=== PATIENT | female | born 1945 | race Caucasian/White ===

== ENCOUNTER 2018-07-13 07:56 | Emergency (ER) | payer MEDICARE ==
[2018-07-13 08:12] VITALS: BP 151/64
--- NOTE | 2018-07-13 08:20 | UC ---
UC General HPI - HPI Summary HPI Summary: 73 year old female presents with onset of sore throat 2 days ago. States sore throat has improved but yesterday developed nausea with 2 episodes of vomiting. Last episode around 19:00 last night. Continues to complain of nausea. Associated with subjective fever, sweating, mild nasal congestion, and cough. Denies ear pain, dysphagia, chest pain, palpatations, SOB, abdominal pain, or diarrhea. - History of Current Complaint Chief Complaint: UCGeneralIllness Stated Complaint: ACHY,SORE THROAT,VOMITING,HEADACHE Time Seen by Provider: 07/13/18 08:09 Hx Obtained From: Patient Pain Intensity: 5 - Allergy/Home Medications Allergies/Adverse Reactions: Allergies Allergy/AdvReac Type Severity Reaction Status Date / Time ciprofloxacin Allergy Diarrhea Verified 07/13/18 08:08 PMH/Surg Hx/FS Hx/Imm Hx Endocrine History: Diabetes, Dyslipidemia Cardiovascular History: Hypertension GI/ History: Gastroesophageal Reflux - Surgical History Surgical History: Yes Surgery Procedure, Year, and Place: 1950 [facility]. 2018 [facility]. R knee replacement. R shoulder surgery - Family History Known Family History: Positive: Non-Contributory - Social History Occupation: Retired Lives: With Family Alcohol Use: Occasionally Substance Use Type: None Smoking Status (MU): Former Smoker - Immunization History Most Recent Influenza Vaccination: 2013 Review of Systems All Other Systems Reviewed And Are Negative: Yes Constitutional: Positive: Fever - Subjective. Negative: Chills Skin: Negative: Rash Eyes: Negative: Drainage, Eye Redness ENT: Positive: Sore Throat, Nasal Discharge. Negative: Ear Ache, Sinus Congestion, Sinus Pain/Tenderness Respiratory: Positive: Cough. Negative: Shortness Of Breath Cardiovascular: Negative: Palpitations, Chest Pain Gastrointestinal: Positive: Vomiting, Nausea. Negative: Abdominal Pain, Diarrhea Genitourinary: Negative: Dysuria, Frequency, Urgency, Vaginal/Penile Discharge, Abnormal Bleeding Musculoskeletal: Positive: Myalgia Neurological: Positive: Headache Is Patient Immunocompromised?: No Physical Exam - Summary Physical Exam Summary: GENERAL APPEARANCE: Well developed, obese, alert and cooperative older adult female who appears to be in no acute distress. EYES: Conjunctiva clear. No discharge. Vision is grossly intact. EARS: External auditory canals and tympanic membranes clear, hearing grossly intact. NOSE: Mild nasal congestion. No nasal discharge. THROAT: Pharynx normal. Tonsils surgically absent. NECK: Neck supple, non-tender without lymphadenopathy. CARDIAC: Normal S1 and S2. No S3, S4 or murmurs. Rhythm is regular. There is no peripheral edema, cyanosis or pallor. Extremities are warm and well perfused. Capillary refill is less than 2 seconds. LUNGS: Clear to auscultation without rales, rhonchi, wheezing or diminished breath sounds. ABDOMEN: Positive bowel sounds. Soft, nondistended, nontender. No guarding or rebound. No masses or hepatosplenomegally. No CVA tenderness. MUSKULOSKELETAL: ROM intact to all extremities. No joint erythema or tenderness. Normal muscular development. Normal gait. SKIN: Skin normal color, texture and turgor with no lesions or eruptions. Triage Information Reviewed: Yes Vital Signs: Initial Vital Signs Temp 97.5 F 07/13/18 08:08 Pulse 103 07/13/18 08:08 Resp 22 07/13/18 08:08 BP 151/64 07/13/18 08:08 Pulse Ox 97 07/13/18 08:08 Vital Signs Reviewed: Yes Diagnostics - Laboratory Diagnostic Studies Completed/Ordered: Rapid flu test negative. FSBG 113. POC UA 1+ Bilirubin, 1+ ketones, 2+ protein. Course/Dx - Course Course Of Treatment: 73 year old female presents with onset of sore throat 2 days ago. States sore throat has improved but yesterday developed nausea with 2 episodes of vomiting. Last episode around 19:00 last night. Continues to complain of nausea. Associated with subjective fever, sweating, mild nasal congestion, and cough. Denies ear pain, dysphagia, chest pain, palpatations, SOB , abdominal pain, or diarrhea. Afebrile. Hypertensive with mild tachycardia otherwise stable VS. Exam reveals older adult female in no acute distress with overall unremarkable exam. Rapid flu test negative. FSBG 113. POC UA 1+ Bilirubin, 1+ ketones, 2+ protein. Suspect viral illness. Recommend symptomatic treatment including ondansetron 4 mg PO Q8h as needed for nausea and vomiting. Patient is to follow up with PCP in 3 days if no improvement in symptoms. Anticipatory guidance and warning symptoms reviewed with patient. Verbalizes understanding and agrees with POC. - Differential Dx - Multi-Symptom Differential Diagnoses: Other - Influenza, pharyngitits, URI, nausea, vomiting, gastroenteritis, DKA - Diagnoses Provider Diagnosis: Pharyngitis, Nausea & vomiting Discharge - Sign-Out/Discharge Documenting (check all that apply): Patient Departure All imaging exams completed and their final reports reviewed: No Studies - Discharge Plan Condition: Stable Disposition: HOME Prescriptions: Ondansetron [Ondansetron Odt] 4 mg PO Q8HR PRN #6 tab.rapdis PRN Reason: Nausea/Vomiting Patient Education Materials: Pharyngitis (ED), Acute Nausea and Vomiting (ED) Referrals: Zee Brown PA [Primary Care Provider] - 3 Days Additional Instructions: The rapid flu test performed in the clinic today was negative. Your blood glucose was mildly elevated but consistent with your diagnosis of diabetes. The urine test showed no evidence of infection. Use ondansetron (zofran) 1 tab every 8 hours as needed for nausea or vomiting. Drink plenty of fluids. Try to drink small amounts frequently to avoid filling your stomach to full which can cause vomiting. If you are still having vomiting, start with a clear liquid diet including soup broths, Jello, popsicles, and isrrael-kyree with carbonation stirred out of it. You may then advance to a bland diet including saltine crackers, toast, bananas , rice, and applesauce. Then return to a normal diet as tolerated. Use salt water gargles several times a day. Take over the counter acetaminophen (Tylenol) according to directions as needed for pain or fever. You may also use Chloraseptic spray or Cepacol lonzenges according to directions which contain a numbing medication and can provide some temporary relief from your sore throat. Return here or follow up with your primary care provider in 3 days if symptoms persist. Seek immediate medical attention in the emergency room if you develop fever greater than 100.5 F, have severe abdominal pain, persistent vomiting, blood in your vomit or stool, or any worsening of symptoms. - Billing Disposition and Condition Condition: STABLE Disposition: Home
[2018-07-13 08:30] LABS: Influenza A Molecular NEGATIVE (Negative); Influenza B Molecular NEGATIVE (Negative)
[2018-07-13] MEDS ORDERED: Ondansetron ODT TAB* 4 MG PO ONE (08:35)
== END 2018-07-13 09:10 | disposition home or self-care (01) ==
LOC: UCCORT 07:56
DX: J02.9 Acute pharyngitis, unspecified (principal); R11.2 Nausea with vomiting, unspecified; R09.81 Nasal congestion; E11.9 Type 2 diabetes mellitus without complications; I10 Essential (primary) hypertension; R09.89 Other specified symptoms and signs involving the circulatory and respiratory systems; E66.9 Obesity, unspecified; Z88.1 Allergy status to other antibiotic agents; Z87.891 Personal history of nicotine dependence
CPT/HCPCS: 81003; 99202; A9270-GY; G0463

== ENCOUNTER 2018-12-24 18:26 | Emergency (ER) | payer MEDICARE ==
[2018-12-24 20:18] VITALS: BP 176/82
[2018-12-24] MEDS ORDERED: DOXYcycline CAP(*) 100 MG PO ONE (20:42)
--- NOTE | 2018-12-24 20:44 | UC ---
Skin Complaint HPI - HPI Summary HPI Summary: Patient is a 73-year-old female here with a rash. Patient noticed a circumferential, erythematous rash to her left rest this morning. Rash is not itchy, painful, warm. Patient has no recent encounter with a tick bite but does garden a lot and has had ticks in the past. Medications reviewed - History of Current Complaint Chief Complaint: UCSkin Time Seen by Provider: 12/24/18 20:22 Stated Complaint: SKIN CONCERN Hx Obtained From: Patient Onset/Duration: Sudden Onset Pain Intensity: 0 - Allergy/Home Medications Allergies/Adverse Reactions: Allergies Allergy/AdvReac Type Severity Reaction Status Date / Time ciprofloxacin Allergy Diarrhea Verified 12/24/18 20:18 Home Medications: Home Medications Atorvastatin* [Lipitor 20 MG*] 1 tab PO DAILY 12/24/18 [History Confirmed ] Docusate CAP* [Colace Cap*] 1 tab PO DAILY 12/24/18 [History Confirmed 12/24/18] Losartan/Hydrochlorothiazide [Losartan-Hctz 100-12.5 mg Tab] 1 tab PO DAILY 06/13 [History Confirmed 12/24/18] Naproxen [Naproxen 375 mg tab] 1 tab PO DAILY 12/24/18 [History Confirmed ] PMH/Surg Hx/FS Hx/Imm Hx Previously Healthy: Yes - Surgical History Surgical History: Yes Surgery Procedure, Year, and Place: 1950 [facility]. 2006 [facility]. R knee replacement. R shoulder surgery - Family History Known Family History: Positive: Non-Contributory - Social History Alcohol Use: Occasionally Substance Use Type: None Smoking Status (MU): Former Smoker When Did the Patient Quit Smoking/Using Tobacco: 2016 - Immunization History Most Recent Influenza Vaccination: 2013 Review of Systems All Other Systems Reviewed And Are Negative: Yes Constitutional: Negative: Fever, Chills Skin: Negative: Rash, Bruising ENT: Negative: Sore Throat, Ear Ache, Nasal Discharge Respiratory: Negative: Shortness Of Breath, Cough Cardiovascular: Negative: Palpitations, Chest Pain Gastrointestinal: Negative: Abdominal Pain, Vomiting, Diarrhea Physical Exam - Summary Physical Exam Summary: Vital Signs Reviewed: Yes A+Ox3, no distress Eyes: Conjunctiva Clear, PERRL. EOM intact and full ENT: Hearing grossly normal TM x 2 clear, moist, uvula midline, no exudate, no erythema Neck: Positive: Supple Respiratory: Positive: No respiratory distress, No accessory muscle use + CTA throughout no w/r Cardiovascular: RRR nl s1, s2 no m/r CBT <2 sec abd soft + BS nt/nd no guarding, no distension Musculoskeletal Exam: MALDONADO x 4 without difficulty Strength Intact, ROM Intact Neurological: Positive: Alert, + sensation throughout Psychological: Positive: Normal Response To Family Skin: Positive: 3cm x 3 cm circumferential erythematous rash to the left breast. Area is not tender, warm, fluctuant, indurated. No central clearing. No lymphadenopathy palpated Triage Information Reviewed: Yes Vital Signs: Initial Vital Signs Temp 97.7 F 12/24/18 20:11 Pulse 67 12/24/18 20:11 Resp 16 12/24/18 20:11 BP 176/82 12/24/18 20:11 Pulse Ox 98 12/24/18 20:11 Course/Dx - Course Course Of Treatment: Patient's here for suspected Lyme disease. Patient was tested and will be treated empirically with doxycycline for 2 weeks. Patient was encouraged to follow up with her primary care doctor 2 weeks for repeat testing in case her serologies are falsely negative. - Differential Diagnoses - Skin Complaint Differential Diagnoses: Erythema Nodosum, Erythema Multiforme, Tick Born Illness , Tinea, Urticaria - Diagnoses Provider Diagnosis: Lyme disease Discharge - Sign-Out/Discharge Documenting (check all that apply): Patient Departure All imaging exams completed and their final reports reviewed: No Studies - Discharge Plan Condition: Stable Disposition: HOME Prescriptions: DOXYcycline CAP(*) [DOXYcycline 100MG CAP(*)] 100 mg PO BID 14 Days #28 cap Patient Education Materials: Lyme Disease (ED) Referrals: Zee Brown PA [Primary Care Provider] - Additional Instructions: Please take your antibiotics as prescribed We will call you in the next couple of days with your test results You have to see her primary care doctor in 2 weeks to get further medicine and to get retested - Billing Disposition and Condition Condition: STABLE Disposition: Home
== END 2018-12-24 20:53 | disposition home or self-care (01) ==
LOC: UCCORT 18:26
DX: A69.20 Lyme disease, unspecified (principal); Z88.1 Allergy status to other antibiotic agents; Z87.890 Personal history of sex reassignment; Z87.891 Personal history of nicotine dependence
CPT/HCPCS: 36415; 86618; 99212; A9270-GY; G0463